=== PATIENT | male | born 1985 | race African-American/Black ===

== ENCOUNTER 2016-08-11 10:29 | Emergency (ER) | payer OTHER ==
[~2016-08-11] VITALS: Ht 165.1 cm; Wt 59.0 kg
[~2016-08-11 10:29] MED LIST: NORCO 5-325 TA1 EACH PO
[2016-08-11 11:07] LABS: HEMATOCRIT 40.2 % (42.0-52.0); HEMOGLOBIN 13.8 gm/dL (14.0-18.0); MCH 32.9 pg (26.0-34.0); MCHC 34.3 g/dL (28.0-37.0); MCV 96.1 fL (80.0-100.0); PLATELET COUNT 186 thou/uL (150-400); RBC 4.18 mil/uL (4.50-6.00); RDW 13.8 % (10.5-14.5); WBC 4.9 thou/uL (4.0-11.0)
[2016-08-11 11:14] LABS: MANUAL DIFF YES
[2016-08-11 11:15] LABS: CALCIUM 8.8 mg/dL (8.5-10.1); CREATININE 0.9 mg/dL (0.7-1.3); POTASSIUM 4.4 mmol/L (3.5-5.1)
[2016-08-11] MEDS ORDERED: CLEOCIN HCL150 MG PO (11:52)
[2016-08-11 11:58] LABS: ABSOLUTE NEUTROPHILS 2.8 thou/uL (1.4-8.2); ATYPICAL LYMPHS 2 %; TOTAL CELL COUNT 100
[2016-08-11 12:00] VITALS: BP 110/72
== END 2016-08-11 12:06 | disposition home or self-care (01) ==
LOC: ER 10:29
PROVIDERS: Physician Assistant
DX: H05.011 Cellulitis of right orbit (principal)

== ENCOUNTER 2020-06-01 13:47 | Emergency (ER) | payer OTHER ==
[~2020-06-01] VITALS: Ht 162.6 cm; Wt 81.7 kg
[~2020-06-01 13:47] MED LIST changes: +CLEOCIN HCL150 MG PO
[2020-06-01 14:24] LABS: ABSOLUTE NEUTROPHILS 18.3 thou/uL (1.4-8.2); EOSINOPHILS 0.5 % (0.0-3.0); HEMATOCRIT 43.2 % (42.0-52.0); HEMOGLOBIN 14.4 gm/dL (14.0-18.0); LYMPHOCYTES 2.7 % (24.0-44.0); MCH 31.8 pg (26.0-34.0); MCHC 33.4 g/dL (28.0-37.0); MCV 95.4 fL (80.0-100.0); MONOCYTES 4.2 % (1.0-8.0); PLATELET COUNT 270 thou/uL (150-400); POLYS 92.6 % (36.0-66.0); RBC 4.53 mil/uL (4.50-6.00); RDW 13.2 % (10.5-14.5); WBC 19.7 thou/uL (4.0-11.0)
[2020-06-01 14:32] LABS: CALCIUM 9.2 mg/dL (8.5-10.1); CREATININE 1.2 mg/dL (0.7-1.3); POTASSIUM 4.3 mmol/L (3.5-5.1)
[2020-06-01 14:38] LABS: ALBUMIN 4.6 g/dL (3.4-5.0); TOTAL BILIRUBIN 0.7 mg/dL (0.2-1.0); TOTAL PROTEIN 8.7 g/dL (6.4-8.2)
[2020-06-01 15:54] LABS: URINE BLOOD NEGATIVE (Negative); URINE CLARITY CLEAR; URINE COLOR YELLOW; URINE GLUCOSE-RANDOM* NEGATIVE (Negative); URINE KETONES NEGATIVE (Negative); URINE LEUKOCYTES-REFLEX NEGATIVE (Negative); URINE NITRITE-REFLEX NEGATIVE (Negative); URINE PROTEIN (DIPSTICK) NEGATIVE (Negative); URINE SPECIFIC GRAVITY 1.025 (1.005-1.035); URINE UROBILINOGEN 0.2 E.U./dl (0.2-1.0)
[2020-06-01 15:55] LABS: ICTOTEST (BILI CONFIRMATORY) Negative (Negative); URINE BILIRUBIN NEGATIVE (Negative)
[2020-06-01] MEDS ORDERED: ONDANSETRON HCL4 M2 PO (15:55)
[2020-06-01] MEDS ORDERED: LEVSIN0.125 MG PO (15:55)
[2020-06-01 16:22] VITALS: BP 118/71
== END 2020-06-01 16:35 | disposition home or self-care (01) ==
LOC: ER 13:47
PROVIDERS: Physician Assistant
DX: R11.2 Nausea with vomiting, unspecified (principal); R10.84 Generalized abdominal pain; Z20.822 Contact with and (suspected) exposure to COVID-19